=== PATIENT | male | born 1955 | race Caucasian/White ===

== ENCOUNTER 2017-06-24 08:49 | Day surgery (SDC) | payer OTHER ==
[~2017-06-24 08:49] MED LIST: AMOXICOT500 MG PO; ASPIR-LOW81 MG; ASPIRIN81 MG PO; CLINDAMYCIN300 MG PO; KEFLEX 500MG.500 MG PO; MAGNESIUM250 MG PO; PREDNISONE 20MG20 MG PO; RITE AID MAGNE500 MG PO; SIMVASTATIN40 MG PO; TESSALON PERLE100 MG PO; TRIAMTERENE/HCT1 CA1 PO
--- NOTE | 2017-06-24 10:26 | Operative Note ---
Surgeon/Diagnoses Surgeon/Admissions Clinician(s) Date of procedure: 06/24/17 Surgeon: MD Elizabeth Mike Diagnoses Pre-op diagnosis: History of colon polyps Post-op diagnosis Colon polyps Procedure Procedure Procedure: Colonoscopy with polypectomy by means other than snare (biopsy) Indications: INDIGO WALSH is a 61 year-old Male with a history of colon polyps noted in May 2015. A sessile serrated adenoma of the periappendiceal region, a tubular adenoma of the cecum, and a sessile serrated adenoma of the transverse colon were all excised and found to be adenomatous. A very tortuous sigmoid colon was also encountered. He returns relatively short-term repeat. Findings: Bowel preparation moderate Fairly significant spasticity and lack of fixation Tortuosity noted, but less severe versus prior evaluation Transverse colon polyp Distal transverse colon polyp (8 mm sessile) Polyp at 10 cm Procedure Description: After informed consent was obtained, the patient was taken to the endoscopy suite. IV sedation ensued after he was transferred to the LEFT lateral decubitus position. Digital rectal exam revealed no significant abnormality. The colonoscope was placed in position. The entire colon was evaluated. Bowel preparation was moderate with large volume irrigation and suctioning used to somewhat improved visualization. Fairly significant spasticity and lack of relaxation were encountered. Tortuosity was noted; however, the degree of severity was much less when compared to prior evaluation. A transverse colon polyp was excised with cold biopsy forceps. An 8 mm distal transverse colon polyp was excised with cold biopsy forceps. A polyp at 10 cm was excised with cold biopsy forceps. No additional lesions were seen. The colonoscope was carefully removed and the patient was transferred to recovery. EBL (ml): 1 Anesthesia: IV sedation with 7 mg of Versed and 100 g of fentanyl Complications: No immediate Specimens: Transverse colon polyp 8 mm sessile distal transverse colon polyp Polyp at 10 cm Disposition Disposition: Stable to recovery from where he will be discharged home. He will follow up in one week. Repeat colonoscopy is pending pathology but will likely be between 2-3 years secondary to size/nature/number of polyps, spasticity, and tortuosity. at [id number]
[2017-06-24 11:25] VITALS: BP 116/81
== END 2017-06-24 11:05 | disposition home or self-care (01) ==
LOC: SDC 08:49
PROVIDERS: Surgery
PROC: 0DBL8ZX Excision of Transverse Colon, Via Natural or Artificial Opening Endoscopic, Diagnostic (ICD-10-PCS; principal; 2017-06-24 09:30)
DX: Z09 Encounter for follow-up examination after completed treatment for conditions other than malignant neoplasm (principal); Z86.010 Personal history of colon polyps; K63.5 Polyp of colon